=== PATIENT | male | born 1975 | race Two or more races ===

== ENCOUNTER 2019-05-14 13:00 | Emergency (ER) | payer OTHER ==
[~2019-05-14] VITALS: Ht 160 cm; Wt 80.7 kg
[2019-05-14 13:18] VITALS: BP 142/87
--- NOTE | 2019-05-14 13:20 | NUR ---
ED Nurse Note: Patient walked in to ER due to laceration of his left second finger with the knife. AAO x4, VSS at this time.
--- NOTE | 2019-05-14 13:56 | Emergency Room Report ---
History of Present Illness General Chief Complaint: Laceration Source: Patient Present Illness HPI 44-year-old male with no symptom past medical history and not taking any blood thinners here complaining of finger laceration that happened at work. 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 Employer applied sand to the affected area. No obvious bleeding noted. Has range of motion. Denies all other injuries. Denies fever and chills, URI symptoms. COVID-19 risk:Contact w/high r: No COVID-19 risk:Travel to affect: No Has patient experienced gaffney: No Allergies: Coded Allergies: No Known Allergies (Unverified , 05/14/19) Patient History Past Medical History: see triage record Past Surgical History: none Pertinent Family History: none Immunizations: UTD Reviewed Nursing Documentation: PMH: Agreed; PSxH: Agreed Nursing Documentation-PMH Past Medical History: No Stated History Review of Systems All Other Systems: negative except mentioned in HPI Physical Exam Vital Signs Date Time Temp Pulse Resp B/P (MAP) Pulse Ox O2 Delivery O2 Flow Rate FiO2 05/14/19 13:11 98.2 74 18 142/87 (105) 98 Room Air Sp02 EP Interpretation: reviewed, normal General Appearance: no apparent distress, alert, GCS 15, non-toxic Head: normocephalic, atraumatic Eyes: bilateral eye normal inspection, bilateral eye PERRL ENT: hearing grossly normal, normal pharynx, no angioedema, normal voice Neck: full range of motion, supple/symm/no masses Respiratory: chest non-tender, lungs clear, normal breath sounds, no rhonchi, no wheezing, speaking full sentences Cardiovascular #1: regular rate, rhythm, no edema, no murmur Cardiovascular #2: 2+ radial (R), 2+ radial (L) Gastrointestinal: normal bowel sounds, non tender, soft, non-distended, no guarding, no rebound Musculoskeletal: back normal, non-tender Neurologic: alert, motor strength/tone normal, oriented x3, sensory intact, responsive, speech normal Psychiatric: judgement/insight normal, memory normal, mood/affect normal, no suicidal/homicidal ideation Skin: laceration - Avulsion laceration left index finger Lymphatic: no adenopathy Procedures Laceration/Wound Repair Laceration/Wound Repair : Consent: Verbal Wound Location: upper extremity - Left index finger Wound's Depth, Shape: superficial Wound Length (cm): 1 Wound Explored: contaminated Betadine Prep?: Yes Wound Debrided: minimal Sterile Dressing Applied?: Yes Splint Applied?: No Sling Applied?: No Patient Tolerated: Well Complications: None Progress Does not require sutures as this is an avulsion laceration Medical Decision Making PA Attestation All my diagnosis and treatment plans were reviewed ad discussed with my supervising physician Dr. Judge Diagnostic Impression: Primary Impression: Laceration of finger ER Course 44-year-old male with no symptom past medical history and not taking any blood thinners here complaining of finger laceration that happened at work. 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 Employer applied sand to the affected area. No obvious bleeding noted. Has range of motion. Denies all other injuries. Denies fever and chills, URI symptoms. Ddx considered but are not limited to : Superficial laceration, deep laceration , tendon involvement with laceration, laceration with foreign body Vital signs: are WNL, pt. is afebrile H&PE are most consistent with: Superficial laceration/avulsion laceration of finger ORDERS: Finger x-ray, Keflex, Tylenol ED INTERVENTIONS: Wound clean and dressed DISCHARGE: At this time pt. is stable for d/c to home. Will provide printed patient care instructions, and any necessary prescriptions. Care plan and follow up instructions have been discussed with the patient prior to discharge. Follow-up with primary care doctor, take medication as directed, worsening symptoms return to the emergency room Other X-Ray Diagnostic Results Other X-Ray Diagnostic Results : X-Ray ordered: Finger left # of Views/Limited Vs Complete: 3 View Indication: Pain EP Interpretation: Yes REJI Xray: Interpretation reviewed, by supervising MD, and agrees with findings. Interpretation: no dislocation, no soft tissue swelling, no fractures, other - No foreign body Impression: No acute disease Electronically Signed by: Sarah Murdock PA-C Last Vital Signs Date Time Temp Pulse Resp B/P (MAP) Pulse Ox O2 Delivery O2 Flow Rate FiO2 05/14/19 13:18 98.2 78 18 142/87 98 Room Air Disposition: HOME, SELF-CARE Condition: Stable Scripts Acetaminophen* (TYLENOL EXTRA STRENGTH*) 500 Mg Tablet 500 MG ORAL Q8H PRN for Prn Headache/Temp > 101, #30 TAB 0 Refills Prov: Sarah Fischer 05/14/19 Cephalexin* (KEFLEX*) 500 Mg Capsule 500 MG ORAL EVERY 6 HOURS for 7 Days, #28 CAP Prov: Sarah Fischer 05/14/19 Referrals: NOT CHOSEN IPA/MD,REFERRING (PCP) Patient Instructions: Laceration Care, Adult Additional Instructions: Take medication as directed, follow-up primary care provider, worsening symptoms return to the emergency room Sarah Fischer May 14, 2019 13:55
[2019-05-14] MEDS ORDERED: CEPHALEXIN500 MG ORAL (13:59)
[2019-05-14] MEDS ORDERED: TYLENOL EXTRA500 MG ORAL (13:59)
[2019-05-14] MEDS ORDERED: Tetanus/Diptheria/Pertussis IM ONE (14:00)
[2019-05-14 14:14] VITALS: BP 142/87
--- NOTE | 2019-05-14 14:15 | NUR ---
ED Nurse Note: Pt cleared by health care Provider for discharge. DC instructions/prescription was given and explained to pt and verbalized understanding of teachings. All medical deviecs such as ID band removed. Pt is AAO x4, ambulatory and left with all personal belongings.
--- NOTE | 2019-05-14 15:19 | Diagnostic Imaging Report ---
Indication: pain in finger. trauma Findings: 3 views of the left second digit finger were obtained. There is evidence of soft tissue injury involving the second digit. This is near the tip of the finger. There is no radiopaque foreign body identified and no acute fracture or malalignment of the bones. IMPRESSION: Laceration injury
== END 2019-05-14 14:15 | disposition home or self-care (01) ==
LOC: EMR 13:34
DX: S61.211A Laceration without foreign body of left index finger without damage to nail, initial encounter (principal); Z23 Encounter for immunization; W26.0XXA Contact with knife, initial encounter; Y92.9 Unspecified place or not applicable; Y99.0 Civilian activity done for income or pay
CPT/HCPCS: 90471; 90715; 99283